=== PATIENT | female | born 2000 | race Caucasian/White ===

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

== ENCOUNTER → 2019-07-30 | Outpatient (CLI) | payer OTHER ==
[~2019-07-30] MED LIST: ONDA4ODT MM
== END | disposition home or self-care (01) ==
LOC: LAB 14:20 → LAB SHORT 14:20
DX: R10.9 Unspecified abdominal pain (principal)
CPT/HCPCS: 87077; 87086; 87186